=== PATIENT | female | born 1985 | race Caucasian/White ===

== ENCOUNTER 2023-07-07 14:46 | Emergency (ER) | payer SELFPAY ==
[2023-07-07] MEDS ORDERED: Cyclobenzaprine 10 MG TAB ONE (15:24)
[2023-07-07] MEDS ORDERED: Ketorolac Tromethamine 30 MG/ML VIAL ONE (15:24)
[2023-07-07 16:13] LABS: Bilirubin Neg (Negative); Blood, Urine 10 (Negative); Clarity Slightly Cloudy (Clear); Glucose, Urine (Dipstick) Normal (Negative); Ketone, Urine Negative (Negative); Leukocyte 500 (Negative); Nitrite Negative (Negative); Protein, Urine (Dipstick) 15 mg/dl (Neg-Trace)
[2023-07-07 16:32] LABS: Bacteria/HPF Rare-Few HPF (None Seen); CAUTI Indications for Culture Pelvic or flank pain; RBC/HPF 0-3 HPF (0-3)
[2023-07-07 16:34] LABS: Urine Culture Reflex Yes Yes
== END 2023-07-07 17:21 | disposition home or self-care (01) ==
LOC: CSHERS 14:46
DX: N39.0 Urinary tract infection, site not specified (principal); M54.40 Lumbago with sciatica, unspecified side; F17.210 Nicotine dependence, cigarettes, uncomplicated
CPT/HCPCS: 81001; 87086; 96372; 99283; J1885